=== PATIENT | female | born 1975 ===

== ENCOUNTER → 2021-10-12 | Outpatient (CLI) | payer OTHER | LOC: LAB 07:20 → LAB SHORT 07:20 | DX: R93.89 Abnormal findings on diagnostic imaging of other specified body structures (principal) | CPT/HCPCS: 88305 ==

== ENCOUNTER → 2021-10-16 | Outpatient (CLI) | payer OTHER ==
[2021-10-17 16:11] LABS: HPV 16 Negative (Negative); HPV 18 Negative (Negative); HPV OTHER HR TYPES Negative (Negative)
== END | disposition home or self-care (01) ==
LOC: LAB 15:39 → LAB SHORT 15:39
PROVIDERS: Family Medicine
DX: Z12.4 Encounter for screening for malignant neoplasm of cervix (principal)
CPT/HCPCS: 87624; G0123

== ENCOUNTER 2021-12-07 07:01 | Day surgery (SDC) | payer OTHER ==
[~2021-12-07] VITALS: Ht 139.7 cm; Wt 77.9 kg
--- NOTE | 2021-12-07 10:00 | NUR ---
12/07/21 CHARLINE RODRIGUEZ PT HAS PAIN 10/22, RN WAS GOING TO GIVE PT PERCOCET, PT ENDED UP FEELING NAUSEAOUS, ZOFRAN GIVEN. ZOFRAN HELPING NAUSEA. RN ASK PT IF SHE WANTS TO TRY TO TAKE PERCOCET FOR PAIN OR WAIT UNTIL SHE EATS MORE AT HOME- PT STATES SHE WOULD FEEL COMFORTABLE GOING HOME TO EAT AND THEN TAKING THE PERCOCET DR RUSHING SENT HER HOME WITH.
== END 2021-12-07 10:07 | disposition home or self-care (01) ==
LOC: ORSCSDS 07:01
PROVIDERS: Obstetrics & Gynecology
PROC: 0UDB8ZX Extraction of Endometrium, Via Natural or Artificial Opening Endoscopic, Diagnostic (ICD-10-PCS; principal; 2021-12-07 08:15)
PROC: 0U5B8ZZ Destruction of Endometrium, Via Natural or Artificial Opening Endoscopic (ICD-10-PCS; principal; 2021-12-07 08:15)
DX: N92.0 Excessive and frequent menstruation with regular cycle (principal); N81.2 Incomplete uterovaginal prolapse; E78.5 Hyperlipidemia, unspecified
CPT/HCPCS: 88305; A9270; J1100; J1885; J2250; J2405; J2704; J3010; J7120

== ENCOUNTER → 2024-10-08 | Outpatient (CLI) | payer OTHER ==
[2024-10-14 18:30] LABS: HPV HIGH RISK BY TMA Not Detected; HPV SOURCE Cervical
== END | disposition home or self-care (01) ==
LOC: LAB 11:32 → LAB SHORT 11:32
PROVIDERS: Family Medicine
DX: Z00.00 Encounter for general adult medical examination without abnormal findings (principal)
CPT/HCPCS: 87624; G0123